=== PATIENT | male | born 1965 | race Caucasian/White ===

== ENCOUNTER 2019-10-29 19:10 | Emergency (ER) | payer OTHER ==
[~2019-10-29] VITALS: Ht 177.8 cm; Wt 74.8 kg
[2019-10-29] MEDS ORDERED: OXYCONTIN10 M1 PO (19:37)
[2019-10-29] MEDS ORDERED: KLONOPIN1 MG PO (20:00)
[2019-10-29] MEDS ORDERED: METHADONE HCL 110 M1 PO (20:01)
[2019-10-29] MEDS ORDERED: IBUPROFEN 800800 M1 PO (20:02)
[2019-10-29 20:13] VITALS: BP 149/94
== END 2019-10-29 20:13 | disposition home or self-care (01) ==
LOC: M.ERS 19:10
DX: S92.351A Displaced fracture of fifth metatarsal bone, right foot, initial encounter for closed fracture (principal); F31.9 Bipolar disorder, unspecified; Z91.040 Latex allergy status; Z88.0 Allergy status to penicillin; Z88.6 Allergy status to analgesic agent; Z88.8 Allergy status to other drugs, medicaments and biological substances; X50.1XXA Overexertion from prolonged static or awkward postures, initial encounter; Y93.89 Activity, other specified; Y92.89 Other specified places as the place of occurrence of the external cause; Y99.8 Other external cause status

== ENCOUNTER 2021-04-11 16:33 | Emergency (ER) | payer OTHER ==
[~2021-04-11] VITALS: Ht 175.3 cm; Wt 68.0 kg
[~2021-04-11 16:33] MED LIST: IBUPROFEN 800800 M1 PO; KLONOPIN1 MG PO; METHADONE HCL 110 M1 PO; OXYCONTIN10 M1 PO
[2021-04-11 16:34] VITALS: BP 101/72
== END 2021-04-11 18:31 | disposition home or self-care (01) ==
LOC: M.ERS 16:33
DX: R51.9 Headache, unspecified (principal); M25.551 Pain in right hip; R42 Dizziness and giddiness; F31.9 Bipolar disorder, unspecified; F17.210 Nicotine dependence, cigarettes, uncomplicated; Z88.6 Allergy status to analgesic agent; Z91.040 Latex allergy status; Z88.8 Allergy status to other drugs, medicaments and biological substances; V28.4XXA Motorcycle driver injured in noncollision transport accident in traffic accident, initial encounter; Y93.I9 Activity, other involving external motion; Y92.488 Other paved roadways as the place of occurrence of the external cause; Y99.8 Other external cause status